=== PATIENT | female | born 1965 ===

== ENCOUNTER 2024-09-13 08:03 | Inpatient (IN) | payer OTHER ==
[~2024-09-13] VITALS: Ht 160 cm; Wt 95.3 kg
[2024-09-13] MEDS ORDERED: LORazepam 2 MG/ML VIAL IM PRN (09:30)
[2024-09-13] MEDS ORDERED: LORazepam 1 MG TAB PO PRN (09:35)
[2024-09-13] MEDS ORDERED: Ziprasidone Mesylate 20 MG VIAL IM PRN (09:35)
[2024-09-13] MEDS ORDERED: Water, Sterile 10 ML VIAL IM PRN (09:35)
[2024-09-13 12:09] LABS: BILIRUBIN Negative (Negative); BLOOD Negative (Negative); CLARITY Clear (Clear); COLOR Yellow (Yellow); GLUCOSE 3+ (Negative); KETONE Negative (Negative); LEUKO ESTERASE 1+ (Negative); NITRITE Negative (Negative); PH 5.5 (4.5-8.0); SPECIFIC GRAVITY >= 1.030 (1.001-1.030); UROBILINOGEN 0.2 E.U./dl (0.0-1.0)
[2024-09-13 12:23] LABS: WBC 21-30 wbc/hpf (0-5)
[2024-09-13] MEDS ORDERED: ALBUTEROL2.5 MG/0.5 INH (13:19)
[2024-09-13] MEDS ORDERED: KLONOPIN2 M1 PO (13:19)
[2024-09-13] MEDS ORDERED: TRULICITY3 MG/0.5 M SQ (13:20)
[2024-09-13] MEDS ORDERED: JARDIANCE25 MG PO (13:21)
[2024-09-13] MEDS ORDERED: HUMALOG KW200 UNIT/1 SQ (13:22)
[2024-09-13] MEDS ORDERED: TOPROL XL25 MG PO (13:23)
[2024-09-13] MEDS ORDERED: PRILOSEC20 M1 PO (13:25)
[2024-09-13] MEDS ORDERED: ZOLOFT50 MG PO (13:26)
[2024-09-13] MEDS ORDERED: PREDNISOLONE SO10 MG PO (13:26)
[2024-09-13] MEDS ORDERED: ALDACTONE25 MG PO (13:27)
[2024-09-13] MEDS ORDERED: ROSUVASTATIN CA10 MG PO (13:27)
[2024-09-13] MEDS ORDERED: TORSEMIDE20 MG PO (13:30)
[2024-09-13] MEDS ORDERED: KENALOG 0.1%80 GM T (13:34)
[2024-09-13] MEDS ORDERED: EFFEXOR XR75 M1 PO (13:35)
[2024-09-13] MEDS ORDERED: ACCUNEB 0.1.25 MG/1 INH (13:36)
[2024-09-13] MEDS ORDERED: PULMICORT RESP0.5 M1 INH (13:37)
[2024-09-13] MEDS ORDERED: FORMOTEROL20 MCG/21 INH (13:39)
[2024-09-13] MEDS ORDERED: VOLTAREN ARTHRI20 GM T (13:41)
[2024-09-13] MEDS ORDERED: LANTUS SOL100 UNIT/1 SC (13:43)
[2024-09-13] MEDS ORDERED: MG-AL HYDROXIDE/SIMETICONE 30 ML UDC PO PRN (14:35)
[2024-09-13] MEDS ORDERED: ACETAMINOPHEN 325 MG TAB PO PRN (14:35)
[2024-09-13] MEDS ORDERED: Menthol/Zinc Oxide 4 GM THIN T PRN (14:45)
[2024-09-13] MEDS ORDERED: Albuterol Sulfate 1.25 MG/3 ML VIAL NEB PRN (16:25)
[2024-09-13] MEDS ORDERED: Albuterol Sulfate 2.5 MG/3 ML VIAL NEB SCH (16:35)
[2024-09-13] MEDS ORDERED: Insulin Glargine, Recombinan 1 UNIT/0.01 ML SC SCH (17:00)
[2024-09-13 19:05] VITALS: BP 130/90
[2024-09-13 20:00] VITALS: BP 130/90
[2024-09-13] MEDS ORDERED: Mirtazapine 15 MG TAB PO SCH (21:00)
[2024-09-13] MEDS ORDERED: METOPROLOL SUCCINATE XR 25 MG TAB PO SCH (21:00)
[2024-09-13] MEDS ORDERED: clonAZEPAM 0.5 MG TAB PO SCH (21:00)
[2024-09-13] MEDS ORDERED: BUDESONIDE 0.5 MG AMP NEB SCH (22:00)
[2024-09-14] MEDS ORDERED: OMEPRAZOLE 20 MG CAP PO SCH (06:00)
[2024-09-14 06:18] LABS: BASO % 0.5 % (0.0-1.0); EOS # 0.1 10*3/uL (0.0-0.4); EOS % 1.4 % (1.0-4.0); HEMATOCRIT 35.9 % (37.0-47.0); MEAN CORPUSCULAR HGB 25.4 pg (27.0-31.0); MEAN CORPUSCULAR HGB CONC 26.7 g/dl (33.0-37.0); MEAN PLATELET VOLUME 10.8 fl (9.6-12.3); MONO # 0.7 10*3/uL (0.1-1.0); MONO % 11.4 % (3.0-9.0); NEUT # 3.4 10*3/uL (2.3-7.9); NEUT % 60.4 % (47.0-73.0); PLATELET COUNT AUTOMATED 188 10*3/uL (130-400); RED BLOOD COUNT 3.78 10*6/uL (4.10-5.10); WHITE BLOOD COUNT 5.7 10*3/uL (4.8-10.8)
[2024-09-14 06:47] LABS: ALKALINE PHOSPHATASE 70 U/L (46-116); BUN 10 mg/dl (9-23); CHLORIDE 98 mmol/L (98-107); CHOLESTEROL 161 mg/dL (<200); LDL CHOLESTEROL 74 mg/dL (9-159); POTASSIUM 4.1 mmol/L (3.4-5.1); SGPT/ALT 11 U/L (5-49); TOTAL PROTEIN 5.9 gm/dL (6.0-8.0); TRIGLYCERIDES 164 mg/dl (<150)
[2024-09-14 08:00] VITALS: BP 99/62
[2024-09-14 08:32] LABS: VITAMIN D, 25-HYDROXY 7.5 ng/mL (30-100)
[2024-09-14] MEDS ORDERED: SPIRONOLACTONE 25 MG TAB PO SCH (09:00)
[2024-09-14] MEDS ORDERED: EMPAGLIFLOZIN 25 MG TABLET PO SCH (09:00)
[2024-09-14] MEDS ORDERED: ATORVASTATIN CALCIUM 20 MG TAB PO SCH (10:00)
[2024-09-14] MEDS ORDERED: DEXTROSE 10 % IN WATER 250 ML IV PRN (16:40)
[2024-09-14 20:00] VITALS: BP 133/78
[2024-09-14] MEDS ORDERED: Mirtazapine 15 MG TAB PO SCH (21:00)
[2024-09-14] MEDS ORDERED: INSULIN LISPRO 1 UNIT/0.01 ML SQ SCH (22:00)
[2024-09-15 08:00] VITALS: BP 97/51
[2024-09-15] MEDS ORDERED: TORSEMIDE 20 MG TAB PO SCH (09:00)
[2024-09-15 09:52] VITALS: BP 110/78
[2024-09-15 20:00] VITALS: BP 136/77
[2024-09-16 07:54] VITALS: BP 106/56
[2024-09-16] MEDS ORDERED: Cholecalciferol 5,000 IU CAP (125 MCG) PO SCH (09:00)
[2024-09-16] MEDS ORDERED: MIRTAZAPINE15 M2 PO (09:04)
== END 2024-09-16 15:40 | disposition home or self-care (01) | DRG 885 ==
LOC: 3N 08:03
PROVIDERS: ADMIT Psychiatry & Neurology Psychiatry; ATTEND Psychiatry & Neurology Psychiatry
PROC: GZHZZZZ Group Psychotherapy (ICD-10-PCS; principal; 2024-09-14)
PROC: GZ56ZZZ Individual Psychotherapy, Supportive (ICD-10-PCS; 2024-09-14)
DX: F33.2 Major depressive disorder, recurrent severe without psychotic features (principal); Z59.00 Homelessness unspecified; K50.90 Crohn's disease, unspecified, without complications; R45.851 Suicidal ideations; J44.9 Chronic obstructive pulmonary disease, unspecified; I25.10 Atherosclerotic heart disease of native coronary artery without angina pectoris; E11.9 Type 2 diabetes mellitus without complications; I50.9 Heart failure, unspecified; K21.9 Gastro-esophageal reflux disease without esophagitis; R80.9 Proteinuria, unspecified; F41.9 Anxiety disorder, unspecified; G47.30 Sleep apnea, unspecified; Z91.040 Latex allergy status; Z88.8 Allergy status to other drugs, medicaments and biological substances; Z91.09 Other allergy status, other than to drugs and biological substances; Z79.899 Other long term (current) drug therapy; Z79.01 Long term (current) use of anticoagulants; Z79.2 Long term (current) use of antibiotics